=== PATIENT | female | born 2000 | race American Indian/Alaskan Native ===

== ENCOUNTER → 2022-04-25 13:15 | Outpatient (CLI) | payer MEDICAID, SELFPAY ==
[2022-04-25 15:26] LABS: Rubella Antibody IgG 6.5 IU/mL (>15)
[2022-04-27 06:11] LABS: Varicella IgG Antibody 601 index (Immune >165)
[2022-04-27 13:41] LABS: Mumps Virus IgG Antibody <9.0 AU/mL (Immune >10.9)
== END ==
PROVIDERS: Family Provider Physician Assistant; PCP Physician Assistant; Referring Provider Obstetrics & Gynecology; Visit Provider Obstetrics & Gynecology
DX: Z31.89 Encounter for other procreative management (principal)
CPT/HCPCS: 36415; 86735; 86762; 86765; 86787

== ENCOUNTER → 2022-08-22 09:57 | Outpatient (CLI) | payer MEDICAID, SELFPAY ==
--- NOTE | 2022-08-22 09:59 | DI.US.S_ITS ---
PROCEDURE: US PELVIC COMPLETE INDICATIONS: Irregular bleeding TECHNIQUE: Real-time scanning was performed of the pelvic organs, with image documentation. Additional endovaginal scanning was necessary due to incomplete visualization of the adnexal and endometrial structures by transabdominal scanning. COMPARISON: [facility], US, US PELVIC COMPLETE, 10/22/2020, 9:38. FINDINGS: Uterus: Uterus is anteverted and normal in size at 7.0 x 3.2 x 4.6 cm. The myometrium is homogeneous. The endometrium measures 7 mm combined thickness. No focal intrauterine abnormalities. Ovaries: The right ovary measures 2.9 x 2.5 x 2.2 cm, with a calculated ovarian volume of 8.3 cc. The left ovary measures 4.5 x 2.2 x 3.0 cm, with a calculated ovarian volume of 15.7 cc. The ovaries have a normal sonographic appearance. Greater than 12 follicles are identified in each ovary. There is a likely resolving functional cyst in the left ovary measuring 1.3 cm in size. No adnexal masses are seen. Other: No pathologic free abdominal or pelvic fluid. IMPRESSION: 1. Pelvic ultrasound without acute sonographic abnormalities. 2. Greater than 12 follicles identified in each ovary. This is suggestive of possible polycystic ovarian syndrome. However, given presence of presumed resolving left ovarian functional cyst, consider follow-up pelvic ultrasound during patient's next menstrual cycle. We strive to produce accurate, complete, and clear reports of imaging services. To assist us in improving patient care, this report was composed using standard report templates and voice recognition software. Therefore, it may contain abnormal punctuation, insertions and/or omissions. Occasional wrong-word or sound-alike substitutions may occur. Though we review the report and make efforts to correct it, we do recommend that the report be read carefully in proper context to recognize any text inaccuracies. Dictated by: Ramon Ross M.D. on 08/22/2022 at 11:29 Approved by: Ramon Ross M.D. on 08/22/2022 at 11:43
== END ==
PROVIDERS: Family Provider Physician Assistant; PCP Physician Assistant; Referring Provider Obstetrics & Gynecology; Visit Provider Obstetrics & Gynecology
DX: N92.6 Irregular menstruation, unspecified (principal)
CPT/HCPCS: 76830; 76856

== ENCOUNTER → 2022-10-09 11:09 | Outpatient (CLI) | payer MEDICAID, SELFPAY ==
[2022-10-09 12:03] LABS: Add Manual Diff / Slide Review NO; Basophils Absolute Auto 0 /uL (0-100); Basophils Percent Auto 0.4 % (0-2); Eosinophils Absolute Auto 100 /uL (0-450); Eosinophils Percent Auto 1.4 % (2-4); Hematocrit 41.9 % (36-46); Lymphocytes Absolute Auto 2100 /uL (1100-4500); Lymphocytes Percent Auto 32.1 % (25-40); Mean Corpuscular HGB Conc 33.5 % (30-36); Mean Corpuscular Hemoglobin 26.9 PG (26-34); Mean Corpuscular Volume 80.2 fL (80-100); Monocytes Absolute Auto 300 /uL (0-900); Monocytes Percent Auto 4.3 % (3-14); Neutrophils Absolute Auto 4100 /uL (1500-7000); Neutrophils Percent Auto 61.8 % (50-75); Platelet Count 336 X10^3/uL (150-400); Red Blood Cell Count 5.22 X10^6/uL (4.0-5.2); Red Cell Distribution Width 14.8 % (11.6-14.8); White Blood Cell Count 6.6 X10^3/uL (4.5-11.0)
[2022-10-09 12:20] LABS: Hemoglobin A1C% w Est Avg Glu 5.2 % (4.0-6.0)
[2022-10-09 12:32] LABS: Pregnancy Test Serum,Qual Negative (Negative)
[2022-10-09 12:38] LABS: Alanine Aminotransferase 25 IU/L (<35); Albumin 4.6 g/dL (3.5-5.0); Albumin Globulin Ratio 1.4 (1.0-2.8); Alkaline Phosphatase 101 U/L (38-126); Aspartate Aminotransferase 25 IU/L (14-36); BUN Creatinine Ratio 6.3 (6-22); Bilirubin Total 1.2 mg/dL (0.2-1.3); Blood Urea Nitrogen 7 mg/dL (7-17); Calcium 9.2 mg/dL (8.4-10.2); Carbon Dioxide 26 mmol/L (22-32); Chloride 103 mmol/L (98-107); Cholesterol 113 mg/dL (140-199); Estimated Glomerular Filt Rate > 60 mL/min (>60); Globulin 3.2 g/dL (1.7-4.1); Glucose 93 mg/dL (70-100); HDL Cholesterol 55 mg/dL (40-60); HEMOLYSIS < 15 (0-50); LDL Cholesterol Calculated 51 mg/dL (<100); Potassium 4.1 mmol/L (3.4-5.1); Sodium 141 mmol/L (137-145); Total Protein 7.8 g/dL (6.3-8.2); Triglycerides 36 mg/dL (35-150)
[2022-10-09 12:54] LABS: Prolactin 20.4 ng/mL (3.0-18.6)
[2022-10-09 13:10] LABS: Testosterone 37.5 ng/dL (5.71-77.0)
[2022-10-09 19:35] LABS: Follicle Stimulating Hormone 5.41 mIU/mL; Luteinizing Hormone 34.9 mIU/mL
== END ==
PROVIDERS: Family Provider Physician Assistant; PCP Physician Assistant; Referring Provider Obstetrics & Gynecology; Visit Provider Obstetrics & Gynecology
DX: N92.6 Irregular menstruation, unspecified (principal)
CPT/HCPCS: 36415; 80053; 80061; 82627; 83001; 83002; 83036; 84146; 84403; 84443; 84703; 85025

== ENCOUNTER → 2022-10-31 08:03 | Outpatient (CLI) | payer MEDICAID, SELFPAY ==
[2022-10-31 09:27] LABS: Estimated Glomerular Filt Rate > 60 mL/min (>60)
[2022-10-31 09:44] LABS: Prolactin 24.8 ng/mL (3.0-18.6)
== END ==
PROVIDERS: Family Provider Physician Assistant; PCP Physician Assistant; Referring Provider Obstetrics & Gynecology; Visit Provider Obstetrics & Gynecology
DX: R79.89 Other specified abnormal findings of blood chemistry (principal)
CPT/HCPCS: 36415; 82565; 84146

== ENCOUNTER → 2023-01-30 16:46 | Outpatient (CLI) | payer OTHER, MEDICAID, SELFPAY ==
--- NOTE | 2023-01-30 17:31 | DI.US.S_ITS ---
PROCEDURE: US OB <= 14 WEEKS FETUS INDICATIONS: dating and viability OUTSIDE/PRIOR DATING DATA: Last menstrual period (LMP): 10/23/2022 LMP-based estimated date of delivery (ARPAN): 07/30/2023. First dating scan (date and location): 01/30/2023. Estimated date of delivery (ARPAN) from first dating scan: N/A. The calculations are made using the N/A TECHNIQUE: Real-time scanning was performed of the fetus and maternal pelvic organs, with image documentation. Endovaginal scanning was also performed to better visualize the fetus and maternal ovaries. COMPARISON: None. FINDINGS: There is no intrauterine . The endometrium is thickened. There is echogenic material in the cervix. Maternal organs: Ovaries there is an echogenic structure in the left ovary, complex in nature., measuring 2.2 cm in diameter.. IMPRESSION: No intrauterine is noted. There is a complex structure in the left ovary which may potentially represent a ectopic . This is not definite. Comment: Findings were discussed with Dr. Tobias Webb, covering for Dr. Cecille Kaufman on 01/30/2023 at 1839 hours We strive to produce accurate, complete, and clear reports of imaging services. To assist us in improving patient care, this report was composed using standard report templates and voice recognition software. Therefore, it may contain abnormal punctuation, insertions and/or omissions. Occasional wrong-word or sound-alike substitutions may occur. Though we review the report and make efforts to correct it, we do recommend that the report be read carefully in proper context to recognize any text inaccuracies. Dictated by: Eric Montalvo M.D. on 01/30/2023 at 18:47 Approved by: Eric Soni M.D. on 01/30/2023 at 18:51
== END ==
PROVIDERS: Family Provider Physician Assistant; PCP Physician Assistant; Referring Provider Obstetrics & Gynecology; Visit Provider Obstetrics & Gynecology
DX: Z36.87 Encounter for antenatal screening for uncertain dates (principal); O36.80X0 Pregnancy with inconclusive fetal viability, not applicable or unspecified
CPT/HCPCS: 76801; 76830

== ENCOUNTER 2023-01-30 21:03 | Emergency (ER) | payer OTHER, MEDICAID, SELFPAY ==
[2023-01-30 21:08] VITALS: BP 142/85; PULSE 100; RESP 16; TEMP 36.6; O2SAT 99; BMI 28.1
--- NOTE | 2023-01-30 21:33 | ED.FEMALEGU ---
HPI - Female Genitourinary General Chief complaint: Vaginal Bleeding Stated complaint: Reffered by OB, Seen today for ultrasound Time Seen by Provider: 01/30/23 21:07 Source: patient Mode of arrival: Ambulatory History of Present Illness HPI Narrative: 22F at 14 weeks with known kidney disease presents to the emergency department for an abnormal ultrasound. She had some lower abdominal and pelvic cramping in the passage of some clots yesterday and was scheduled for a routine ultrasound today which was performed and noted no intrauterine and a questionable mass in the left ovary raising the suspicion of a possible ectopic . She was sent here for further evaluation. She has some left lower quadrant pain and minimal current an active bleeding Related Data Home Medications Medication Instructions Recorded Confirmed prenat.vits,helen,[id number] 1 tab PO DAILY 01/29/23 01/29/23 Allergies Allergy/AdvReac Type Severity Reaction Status Date / Time No Known Drug Allergies Allergy Unverified 01/29/23 14:32 Review of Systems Review of Systems Narrative: GENERAL: Denies chills, fatigue, malaise, fever, sweats. HEENT: Denies sinus pain, ear pain, sore throat, difficulty swallowing, dizziness. RESPIRATORY: Denies dyspnea, cough, wheezing, hemoptysis, sputum. CARDIOVASCULAR: Denies chest pain, palpitations, orthopnea, edema, GASTROINTESTINAL: Denies nausea, vomiting, abdominal pain, diarrhea, constipation, melena. : See HPI MUSCULOSKELETAL: denies weakness, joint pain, or bony pain SKIN: Denies rash, skin lesions, or other NEUROLOGIC: Denies weakness, headache, numbness, change in speech, confusion, seizures, incoordination. PSYCHIATRIC: No concerning psychosocial issues. 12 point review of systems is negative except for those stated above Patient History Medical History Chlamydia Surgical History [place] teeth extracted Family History Father Hypertension Mother Diabetes mellitus Hypertension Grandfather Diabetes mellitus Hypertension Grandmother Diabetes mellitus Family/Other Diabetes mellitus Stroke Family/Other Diabetes mellitus Hypertension Grandmother Hypothyroidism tobacco type: vaping alcohol intake frequency: holidays/special occasions only Substance Use Type: does not use Exam Narrative Exam Narrative: GENERAL: [22] year old patient appears stated age. Well-developed patient, in mild distress. HEAD: Atraumatic. Normocephalic. EYES: Pupils equal round and reactive. Extraocular motions intact. No scleral icterus. No injection or drainage. ENT: Nose without bleeding, purulent drainage. Throat without erythema, tonsillar hypertrophy or exudate. Airway patent. NECK: Trachea midline. Non tender CARDIOVASCULAR: Regular rate and rhythm without murmurs, gallops, or rubs. RESPIRATORY: Clear to auscultation. Breath sounds equal bilaterally. No wheezes, rales, or rhonchi. GASTROINTESTINAL: Abdomen soft, moderate left lower quadrant tenderness without rebound, nondistended. EXTREMITIES: No edema or joint tenderness. BACK: Nontender without deformity or crepitance. No flank tenderness. NEURO: AOx3. SKIN: No rash or erythema of visible areas Initial Vital Signs Initial Vital Signs: Vital Signs Temperature 97.8 F 01/30/23 21:08 Pulse Rate 100 H 01/30/23 21:08 Respiratory Rate 16 01/30/23 21:08 Blood Pressure 142/85 H 01/30/23 21:08 Pulse Oximetry 99 01/30/23 21:08 Oxygen Delivery Method Room Air 01/30/23 21:08 Course Orders Ordered: ED Orders 01/30/23 21:45 ABO RH Type Stat Complete Blood Count AUTO DIFF Stat Comprehensive Metabolic Panel Stat HCG Quantitative /Beta subunit Stat Consultations Consultation #1: Discussed case at length with OB provider Dr. Webb. Labs have been obtained and H&H is stable, Rh is positive and beta quantitative hCG is only 121. We reviewed the findings on the ultrasound which could represent ectopic, however given this hCG he suggests no intervention such as methotrexate and certainly not surgical intervention is needed at this time and they abnormal finding could represent a corpus luteum cyst. He recommends typical return precautions and instructions for patient to follow-up with his office to obtain a repeat HCG on Thursday Vital Signs Vital signs: Vital Signs - 8 hr 01/30/23 21:08 01/30/23 21:36 01/30/23 21:36 Temperature 97.8 F Pulse Rate 100 H 107 H Respiratory Rate 16 Blood Pressure 142/85 H 138/80 Pulse Oximetry 99 97 Oxygen Delivery Method Room Air 01/30/23 22:00 01/30/23 22:00 01/30/23 22:30 Temperature Pulse Rate 97 H Respiratory Rate Blood Pressure 137/75 126/78 Pulse Oximetry 98 Oxygen Delivery Method 01/30/23 22:30 Temperature Pulse Rate 95 H Respiratory Rate Blood Pressure Pulse Oximetry 99 Oxygen Delivery Method MDM - Female Genitourinary Lab Data 01/30/23 21:45 01/30/23 21:45 Labs: Lab Results 01/30/23 01/30/23 01/30/23 Range/Units 21:45 21:45 21:45 WBC 11.8 H (4.5-11.0) X10^3/uL RBC 5.02 (4.0-5.2) X10^6/uL Hgb 13.1 (12.0-16.0) g/dL Hct 39.4 (36-46) % MCV 78.5 L (80-100) fL MCH 26.2 (26-34) PG MCHC 33.3 (30-36) % RDW 14.1 (11.6-14.8) % Plt Count 331 (150-400) X10^3/uL Neut % (Auto) 82.3 H (50-75) % Lymph % (Auto) 11.4 L (25-40) % [place] % (Auto) 5.6 (3-14) % Eos % (Auto) 0.2 L (2-4) % Baso % (Auto) 0.5 (0-2) % Neut # (Auto) 9700 H (1672-7176) /uL Lymph # (Auto) 1400 (8374-8694) /uL [place] # (Auto) 700 (0-900) /uL Eos # (Auto) 0 (0-450) /uL Baso # (Auto) 100 (0-100) /uL Sodium 137 (137-145) mmol/L Potassium 3.3 L (3.4-5.1) mmol/L Chloride 100 (98-107) mmol/L Carbon Dioxide 26 (22-32) mmol/L BUN 8 (7-17) mg/dL Creatinine 1.09 H (0.52-1.04) mg/dL Estimated GFR > 60 (>60) mL/min BUN/Creatinine Ratio 7.3 (6-22) Glucose 143 H (70-100) mg/dL Calcium 8.9 (8.4-10.2) mg/dL Total Bilirubin 1.4 H (0.2-1.3) mg/dL AST 18 (14-36) IU/L ALT 17 (<35) IU/L Alkaline Phosphatase 94 (38-126) U/L Total Protein 8.1 (6.3-8.2) g/dL Albumin 4.5 (3.5-5.0) g/dL Globulin 3.6 (1.7-4.1) g/dL Albumin/Globulin Ratio 1.3 (1.0-2.8) HCG, Quant 121.8 mIU/mL Blood Type A Positive MDM Narrative Medical decision making narrative: [22] year old patient presents with and left lower quadrant pain with abnormal ultrasound Multiple etiologies for patient's symptoms considered including, but not limited to: [Ectopic versus corpus luteum cyst versus missed versus other] Prior Charts reviewed in our EMR Primary Historian: patient Labs reviewed and interpreted by myself: Slight increase in white blood cells, no significant left shift, H&H stable. Rh positive, beta quantitative HCG 121. Imaging reviewed: Abnormal finding within left ovary Consultations: financial assistance specialist, see details above History, physical, labs and ultrasound are reassuring, per my discussion with Ob there is no clear indication that this is ectopic and given level of hCG and findings on ultrasound he recommends patient go home, follow up with his office and get a repeat HCG on Thursday Findings and discharge diagnosis discussed with patient/family followed by verbalization of understanding Return precautions discussed with patient/family whom verbalize understanding of diagnosis and plan Discharge Plan Departure Patient Disposition: Home Clinical Impression: Acute left lower quadrant pain Instructions: DI for Abdominal Pain-Adult Activity Restrictions/Additional Instructions: *You have been diagnosed with [left lower quadrant pelvic pain. As we discussed your labs today are very reassuring and this is not clearly an ectopic . We will need to have you follow-up with the Gynecology Clinic and get a repeat HCG ( number) which will help clarify how to proceed] *What to do: *Please continue to take your regular medications as directed. [ ] New medication prescriptions sent to your pharmacy: [ ] [ ] New medication written as a paper prescription [ ] No new medications given *Please follow up gallery or museum technician on Thursday. Call their office at the number listed below, let them know you were seen in the emergency department and Dr. Webb wants you to get another HCG *Return to Emergency Department if you should have any new, worsening or concerning symptoms, such as [fever greater than 101 F, shaking chills, worsening pain, persistent vomiting or other bothersome symptoms] Prescriptions: No Action prenat.vits,helen,[id number] Tablet 1 tab PO DAILY Referrals: Tobias Webb MD [Physician] - Zenia Lopez PA-C [Primary Care Provider] - Stand Alone Forms: Patient Portal/API
[2023-01-30 21:36] VITALS: BP 138/80; PULSE 107; O2SAT 97
[2023-01-30 21:56] LABS: Add Manual Diff / Slide Review NO; Basophils Absolute Auto 100 /uL (0-100); Basophils Percent Auto 0.5 % (0-2); Eosinophils Absolute Auto 0 /uL (0-450); Eosinophils Percent Auto 0.2 % (2-4); Hematocrit 39.4 % (36-46); Hemoglobin 13.1 g/dL (12.0-16.0); Lymphocytes Absolute Auto 1400 /uL (1100-4500); Lymphocytes Percent Auto 11.4 % (25-40); Mean Corpuscular HGB Conc 33.3 % (30-36); Mean Corpuscular Hemoglobin 26.2 PG (26-34); Mean Corpuscular Volume 78.5 fL (80-100); Monocytes Absolute Auto 700 /uL (0-900); Monocytes Percent Auto 5.6 % (3-14); Neutrophils Absolute Auto 9700 /uL (1500-7000); Neutrophils Percent Auto 82.3 % (50-75); Platelet Count 331 X10^3/uL (150-400); Red Blood Cell Count 5.02 X10^6/uL (4.0-5.2); Red Cell Distribution Width 14.1 % (11.6-14.8); White Blood Cell Count 11.8 X10^3/uL (4.5-11.0)
[2023-01-30 22:00] VITALS: BP 137/75; PULSE 97; O2SAT 98
[2023-01-30 22:10] LABS: Alanine Aminotransferase 17 IU/L (<35); Albumin 4.5 g/dL (3.5-5.0); Albumin Globulin Ratio 1.3 (1.0-2.8); Alkaline Phosphatase 94 U/L (38-126); Aspartate Aminotransferase 18 IU/L (14-36); BUN Creatinine Ratio 7.3 (6-22); Bilirubin Total 1.4 mg/dL (0.2-1.3); Blood Urea Nitrogen 8 mg/dL (7-17); Calcium 8.9 mg/dL (8.4-10.2); Carbon Dioxide 26 mmol/L (22-32); Chloride 100 mmol/L (98-107); Estimated Glomerular Filt Rate > 60 mL/min (>60); Globulin 3.6 g/dL (1.7-4.1); Glucose 143 mg/dL (70-100); HEMOLYSIS < 15 (0-50); Potassium 3.3 mmol/L (3.4-5.1); Sodium 137 mmol/L (137-145); Total Protein 8.1 g/dL (6.3-8.2)
[2023-01-30 22:28] LABS: HCG Quantitative /Beta subunit 121.8 mIU/mL
[2023-01-30 22:30] VITALS: BP 126/78; PULSE 95; O2SAT 99
== END 2023-01-30 22:47 | disposition home or self-care (01) ==
PROVIDERS: Emergency Provider Emergency Medicine; Family Provider Physician Assistant; PCP Physician Assistant
DX: R10.32 Left lower quadrant pain (principal); Z36.87 Encounter for antenatal screening for uncertain dates; O36.80X0 Pregnancy with inconclusive fetal viability, not applicable or unspecified
CPT/HCPCS: 36415; 76801; 76830; 80053; 84702; 85025; 86900; 86901; 99283

== ENCOUNTER → 2023-02-02 13:00 | Outpatient (CLI) | payer OTHER, MEDICAID, SELFPAY ==
[2023-02-02 14:04] LABS: HCG Quantitative /Beta subunit 41.6 mIU/mL
== END ==
PROVIDERS: Family Provider Physician Assistant; PCP Physician Assistant; Referring Provider Specialist; Visit Provider Specialist
DX: O20.9 Hemorrhage in early pregnancy, unspecified (principal)
CPT/HCPCS: 36415; 84702

== ENCOUNTER → 2023-03-13 08:50 | Outpatient (CLI) | payer OTHER, MEDICAID, SELFPAY ==
[2023-03-13 09:49] LABS: Appearance Urine UA CLEAR; Bilirubin Urine UA NEGATIVE (NEGATIVE); Color Urine UA YELLOW; Glucose Urine UA NEGATIVE (Negative); Ketones Urine UA NEGATIVE (NEGATIVE); Leukocyte Esterase Urine UA NEGATIVE (NEGATIVE); Nitrite Urine UA NEGATIVE (Negative); Occult Blood Urine UA 1+ (Negative); Protein Urine UA NEGATIVE (Negative); Specific Gravity Urine UA 1.015 (1.000-1.035); Urobilinogen Urine UA 0.2 E.U./dL (0.2)
[2023-03-13 09:52] LABS: pH Urine UA 6.5 (4.5-8.0)
[2023-03-13 09:59] LABS: Amorphous Sediment Urine 2+; Bacteria Urine Occasional (0-1); Culture Indicated Urine Specimen Cultured; RBC Urine 0-1/HPF (0-5/HPF); Squamous Epithelial Cell Urine 1-5 /HPF (0-5/HPF); WBC Urine 0-1/HPF (0-5/HPF)
[2023-03-13 10:01] LABS: Alanine Aminotransferase 15 IU/L (<35); Albumin 4.2 g/dL (3.5-5.0); Albumin Globulin Ratio 1.3 (1.0-2.8); Alkaline Phosphatase 103 U/L (38-126); Aspartate Aminotransferase 17 IU/L (14-36); Bilirubin Total 1.1 mg/dL (0.2-1.3); Bilirubin Unconjugated 0.9 mg/dL (0.0-1.1); Globulin 3.2 g/dL (1.7-4.1); HEMOLYSIS < 15 (0-50); Total Protein 7.4 g/dL (6.3-8.2)
[2023-03-13 10:31] LABS: Creatinine Urine Random 80.3 mg/dL; Protein (Total) Urine Random 7 mg/dL (0-12); Protein Creatinine Ratio Urine 0.08 GRAM/24H
[2023-03-14 04:14] LABS: Complement C3 148 mg/dL (82-167)
[2023-03-16 21:19] LABS: ANA Screen, IFA Negative (.)
[2023-03-17 14:19] LABS: Cytoplasmic C-ANCA <1:20 titer (Neg:<1:20); Perinuclear P-ANCA <1:20 titer (Neg:<1:20)
== END ==
PROVIDERS: Family Provider Physician Assistant; PCP Physician Assistant; Referring Provider Student in an Organized Health Care Education/Training Program; Visit Provider Student in an Organized Health Care Education/Training Program
DX: L93.2 Other local lupus erythematosus (principal); M31.30 Wegener's granulomatosis without renal involvement; N00.9 Acute nephritic syndrome with unspecified morphologic changes; D89.89 Other specified disorders involving the immune mechanism, not elsewhere classified; K74.60 Unspecified cirrhosis of liver; K75.9 Inflammatory liver disease, unspecified; R80.9 Proteinuria, unspecified; N30.00 Acute cystitis without hematuria
CPT/HCPCS: 36415; 80076; 81001; 82570; 83516; 84156; 86038; 86160; 86256; 87086

== ENCOUNTER → 2023-03-17 15:15 | Outpatient (CLI) | payer OTHER, MEDICAID, SELFPAY ==
--- NOTE | 2023-03-17 | DI.US.S_ITS ---
PROCEDURE: US RENAL COMPLETE INDICATIONS: CHRONIC KIDNEY DISEASE TECHNIQUE: Real-time scanning was performed of the kidneys and bladder, with image documentation. COMPARISON: [facility], US, US PELVIC COMPLETE, 08/22/2022, 10:11. [facility], US, US PELVIC COMPLETE, 10/22/2020, 9:38. [facility], US, US OB <= 14 WEEKS FETUS, 01/30/2023, 17:42. FINDINGS: Kidneys: Right kidney is enlarged measuring up 18.1 cm, either replaced by multiple cysts or severely hydronephrotic. Left kidney measures 13.8 cm in length. No stones. Renal cortical echotexture is normal. There is mild renal pelviectasis. No suspicious solid mass lesions. Bladder: Pre-void bladder volume is 250 mL. Post-void residual is 28 mL. Pre-void images demonstrate no intraluminal masses or stones. On pre-void images, left ureteral jets are noted with color Doppler interrogation. (Of note, ureteral jets may not be detectable in up to 25% of cases due to insufficient differences in specific gravity between ureteral and bladder urine). Miscellaneous: No free pelvic fluid. There is a 2.7 x 2.2 x 2.4 cm thick-walled cystic structure in the left adnexa with mild peripheral vascularity. IMPRESSION: 1. Severely abnormal right kidney which is enlarged, and replaced multiple cysts or severely hydronephrotic. Question multicystic dysplastic kidney or chronic UPJ obstruction. Recommend correlation with prior ultrasound exam. 2. Normal appearance of left kidney. 3. There is a complex cyst in the area of the left adnexa. Please see separate pelvic ultrasound report. Dictated by: Jovany Cabral M.D. on 03/17/2023 at 17:11 Approved by: Jovany Cabral M.D. on 03/17/2023 at 21:02
== END ==
PROVIDERS: Family Provider Physician Assistant; PCP Physician Assistant; Referring Provider Student in an Organized Health Care Education/Training Program; Visit Provider Student in an Organized Health Care Education/Training Program
DX: N18.2 Chronic kidney disease, stage 2 (mild) (principal); N28.81 Hypertrophy of kidney; N94.89 Other specified conditions associated with female genital organs and menstrual cycle
CPT/HCPCS: 76770

== ENCOUNTER 2023-03-17 16:42 | Emergency (ER) | payer OTHER, MEDICAID, SELFPAY ==
--- NOTE | 2023-03-17 16:50 | DI.US.S_ITS ---
PROCEDURE: US PELVIC COMPLETE INDICATIONS: follow up ectopic preg TECHNIQUE: Real-time scanning was performed of the pelvic organs, with image documentation. Additional endovaginal scanning was necessary due to incomplete visualization of the adnexal and endometrial structures by transabdominal scanning. COMPARISON: [facility], US, US RENAL COMPLETE, 03/17/2023, 15:58. [facility], US, US OB <= 14 WEEKS FETUS, 01/30/2023, 17:42. [facility], US, US PELVIC COMPLETE, 08/22/2022, 10:11. [facility], US, US PELVIC COMPLETE, 10/22/2020, 9:38. FINDINGS: Uterus: Uterus is anteverted and normal in size at 7.3 x 3.7 x 5.1 cm. The myometrium is homogeneous. The endometrium measures 4 mm combined thickness. Previously seen echogenic structure in cervix not appears hypoechoic measuring 1.9 x 0.9 x 1.6 cm, which demonstrate no internal vascularity. Ovaries: The right ovary measures 3.4 x 1.7 x 2.7 cm, with a calculated ovarian volume of 8.1 cc. The left ovary measures 3.9 x 3.0 x 3 point cm, with a calculated ovarian volume of 23.7 cc. There are numerous cysts in the peripheral aspect of right ovary, probably greater than 12. There is a thick-walled cystic structure in the left ovary measuring 3.3 x 2.0 x 2.9 cm. There is a 1.6 x 1.0 x 1.0 cm hypoechoic nodule adjacent to the right ovary. On Doppler ultrasound, there is no increased vascularity. Other: No pathologic free abdominal or pelvic fluid. IMPRESSION: 1. There is a 3.3 x 2.0 x 2.9 cm thick-walled cystic structure in the left ovary, probably a hemorrhagic cyst. The left ovary is enlarged. Recommend a short-term follow-up ultrasound in 6 weeks. 2. A 1.6 x 1.0 x 1.0 cm hypoechoic nodule adjacent to the right ovary. This can be evaluated at same time on follow-up ultrasound. 3. A hypoechoic structure in the area of cervix measuring 1.9 x 0.9 x 1.6 cm. This demonstrates no internal vascularity. It may be a clot. The result was discussed with Dr. Velasco in ER. The patient had a negative test. We strive to produce accurate, complete, and clear reports of imaging services. To assist us in improving patient care, this report was composed using standard report templates and voice recognition software. Therefore, it may contain abnormal punctuation, insertions and/or omissions. Occasional wrong-word or sound-alike substitutions may occur. Though we review the report and make efforts to correct it, we do recommend that the report be read carefully in proper context to recognize any text inaccuracies. Dictated by: Jovany Cabral M.D. on 03/17/2023 at 18:53 Approved by: Jovany Cabral M.D. on 03/17/2023 at 21:11
[2023-03-17 17:32] VITALS: BP 133/89; PULSE 73; RESP 14; TEMP 37.1; O2SAT 99; BMI 28.1
[2023-03-17 18:13] LABS: Add Manual Diff / Slide Review NO; Basophils Absolute Auto 100 /uL (0-100); Basophils Percent Auto 0.6 % (0-2); Eosinophils Absolute Auto 100 /uL (0-450); Eosinophils Percent Auto 0.7 % (2-4); Hemoglobin 13.8 g/dL (12.0-16.0); Lymphocytes Absolute Auto 2400 /uL (1100-4500); Mean Corpuscular HGB Conc 34.6 % (30-36); Mean Corpuscular Hemoglobin 27.3 PG (26-34); Mean Corpuscular Volume 78.9 fL (80-100); Monocytes Absolute Auto 400 /uL (0-900); Monocytes Percent Auto 5.2 % (3-14); Neutrophils Absolute Auto 5600 /uL (1500-7000); Neutrophils Percent Auto 65.5 % (50-75); Platelet Count 333 X10^3/uL (150-400); Red Blood Cell Count 5.07 X10^6/uL (4.0-5.2); Red Cell Distribution Width 15.1 % (11.6-14.8); White Blood Cell Count 8.5 X10^3/uL (4.5-11.0)
[2023-03-17 18:29] LABS: Alanine Aminotransferase 19 IU/L (<35); Albumin 4.5 g/dL (3.5-5.0); Albumin Globulin Ratio 1.3 (1.0-2.8); Alkaline Phosphatase 104 U/L (38-126); Aspartate Aminotransferase 20 IU/L (14-36); BUN Creatinine Ratio 8.9 (6-22); Bilirubin Total 0.7 mg/dL (0.2-1.3); Blood Urea Nitrogen 10 mg/dL (7-17); Carbon Dioxide 26 mmol/L (22-32); Chloride 104 mmol/L (98-107); Estimated Glomerular Filt Rate > 60 mL/min (>60); Globulin 3.5 g/dL (1.7-4.1); Glucose 93 mg/dL (70-100); HEMOLYSIS < 15 (0-50); Sodium 138 mmol/L (137-145)
[2023-03-17 18:44] LABS: HCG Quantitative /Beta subunit < 2.4 mIU/mL
[2023-03-17 18:57] LABS: Potassium 3.9 mmol/L (3.4-5.1)
[2023-03-17 20:29] LABS: Appearance Urine UA CLEAR; Bilirubin Urine UA NEGATIVE (NEGATIVE); Color Urine UA YELLOW; Glucose Urine UA NEGATIVE (Negative); Ketones Urine UA NEGATIVE (NEGATIVE); Leukocyte Esterase Urine UA NEGATIVE (NEGATIVE); Nitrite Urine UA NEGATIVE (Negative); Occult Blood Urine UA TRACE-INTACT (Negative); Protein Urine UA NEGATIVE (Negative); Specific Gravity Urine UA <=1.005 (1.000-1.035); Urobilinogen Urine UA 0.2 E.U./dL (0.2)
[2023-03-17 20:34] VITALS: BP 145/89; PULSE 77; O2SAT 99
[2023-03-17 20:47] LABS: Amorphous Sediment Urine 1+; Bacteria Urine Occasional (0-1); Culture Indicated Urine Cult Not Indicated; RBC Urine None Seen (0-5/HPF); Squamous Epithelial Cell Urine None Seen (0-5/HPF); WBC Urine None Seen (0-5/HPF)
[2023-03-17 21:00] VITALS: PULSE 79; O2SAT 99
--- NOTE | 2023-03-17 21:22 | ED_ITS ---
HPI - Recheck/Abnormal Lab/Rx General Chief Complaint: Recheck/Abnormal Lab/Rx Stated Complaint: sent by radiology, possible ectopic Time Seen by Provider: 03/17/23 18:08 Source: patient Mode of arrival: Ambulatory History of Present Illness HPI narrative: Patient is a 22-year-old female who today had a outpatient renal ultrasound that was ordered by Nephrology. She was sent to nephrology for evaluation of some issues that she was having with and her urine and kidneys. She states that she followed up with Nephrology approximately 1 month ago. Was found out that time that she was . She stated that the patient scheduling coordinator told her that there was not much they can do until after she was but they did recommend a renal ultrasound. It took her approximately 1 month in order to get into get this ultrasound today. She states since that time she did have a miscarriage. She is not having any vaginal bleeding. No abdominal pain. No vomiting. No fevers. No urinary symptoms. She was sent over to the Emergency Department because of abnormal findings on the ultrasound. Related Data Home Medications Medication Instructions Recorded Confirmed prenat.vits,helen,xkl-vrcu-emgjt 1 tab PO DAILY 01/29/23 02/09/23 Previous Rx's Medication Instructions Recorded norethindrone 1 mg-ethinyl 1 tab PO DAILY control #84 02/09/23 estradiol 20 mcg (21)-iron 75 mg tabs (7) tablet Allergies Allergy/AdvReac Type Severity Reaction Status Date / Time No Known Drug Allergies Allergy Verified 03/17/23 17:32 Review of Systems Constitutional Constitutional: Reports system reviewed and no additional complaints, except as documented Respiratory Respiratory: Reports system reviewed and no additional complaints, except as documented Gastrointestinal Gastrointestinal: Reports system reviewed and no additional complaints, except as documented Genitourinary Genitourinary: Reports system reviewed and no additional complaints, except as documented Integumentary/Breasts Skin/Breast: Reports system reviewed and no additional complaints, except as documented Patient History Medical History Chlamydia Surgical History [place] teeth extracted Family History Father Hypertension Mother Diabetes mellitus Hypertension Grandfather Diabetes mellitus Hypertension Grandmother Diabetes mellitus Family/Other Diabetes mellitus Stroke Family/Other Diabetes mellitus Hypertension Grandmother Hypothyroidism Social History marital status: number of children: 0 household members: family lives independently: Yes caregiver/support person: No housing: house pets and animals: Yes (2 dogs & 1 cat; aware of toxo precautions) education level: college (meagan's degree) 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) current occupational exposures/hazards: No special kurtis needs: No travel history: over 6 months ago seatbelt use: always helmet use: No water heater temp set < 120 deg: Yes working smoke detector in home: Yes fire extinguisher in home: Yes carbon monox detector in home: Yes firearms in home: Yes firearms unloaded and locked: Yes do you feel safe at home: Yes Smoking Status: Former smoker second hand exposure: Yes (family members smoke) alcohol intake: former (occasionally when not ) substance use type: marijuana (agrees not to use while /) during the past year weight has: remained stable well-balanced diet: daily or most days daily servings fruits/ve-1 caffeine: Yes (aware of 200mg limit) Type(s) of exercise: walking and weight lifting frequency: 3-4 times per week Smoking Status: Former smoker tobacco type: vaping alcohol intake frequency: holidays/special occasions only Substance Use Type: does not use Exam Initial Vital Signs Initial Vital Signs: Vital Signs Temperature 98.8 F 03/17/23 17:32 Pulse Rate 73 03/17/23 17:32 Respiratory Rate 14 03/17/23 17:32 Blood Pressure 133/89 03/17/23 17:32 Pulse Oximetry 99 03/17/23 17:32 Oxygen Delivery Method Room Air 03/17/23 17:32 HENMT Head: normal to inspection and normocephalic Resp Effort & Inspection: normal respiratory effort Cardio Rate: regular rate GI Inspection: normal to inspection and non-distended Skin General: no rashes or lesions noted Neuro General: patient alert, patient awake and moves all extremities Course Orders Ordered: ED Orders 03/17/23 19:55 Urinalysis and Microscopic Stat Vital Signs Vital signs: Vital Signs - 8 hr 03/17/23 20:34 03/17/23 21:00 03/17/23 21:25 Pulse Rate 77 79 Blood Pressure 145/89 H 136/86 Pulse Oximetry 99 99 Oxygen Delivery Method 03/17/23 21:25 Pulse Rate 79 Blood Pressure Pulse Oximetry 99 Oxygen Delivery Method Room Air MDM - Recheck/Abnormal Lab/Rx Lab Data Attestation: I reviewed the patient's lab results. 03/17/23 17:50 03/17/23 17:50 Labs: Lab Results 03/17/23 03/17/23 03/17/23 Range/Units 17:50 17:50 19:55 WBC 8.5 (4.5-11.0) X10^3/uL RBC 5.07 (4.0-5.2) X10^6/uL Hgb 13.8 (12.0-16.0) g/dL Hct 40.0 (36-46) % MCV 78.9 L (80-100) fL MCH 27.3 (26-34) PG MCHC 34.6 (30-36) % RDW 15.1 H (11.6-14.8) % Plt Count 333 (150-400) X10^3/uL Neut % (Auto) 65.5 (50-75) % Lymph % (Auto) 28.0 (25-40) % [place] % (Auto) 5.2 (3-14) % Eos % (Auto) 0.7 L (2-4) % Baso % (Auto) 0.6 (0-2) % Neut # (Auto) 5600 (2797-4662) /uL Lymph # (Auto) 2400 (5005-3767) /uL [place] # (Auto) 400 (0-900) /uL Eos # (Auto) 100 (0-450) /uL Baso # (Auto) 100 (0-100) /uL Sodium 138 (137-145) mmol/L Potassium 3.9 (3.4-5.1) mmol/L Chloride 104 (98-107) mmol/L Carbon Dioxide 26 (22-32) mmol/L BUN 10 (7-17) mg/dL Creatinine 1.12 H (0.52-1.04) mg/dL Estimated GFR > 60 (>60) mL/min BUN/Creatinine Ratio 8.9 (6-22) Glucose 93 (70-100) mg/dL Calcium 9.0 (8.4-10.2) mg/dL Total Bilirubin 0.7 (0.2-1.3) mg/dL AST 20 (14-36) IU/L ALT 19 (<35) IU/L Alkaline Phosphatase 104 (38-126) U/L Total Protein 8.0 (6.3-8.2) g/dL Albumin 4.5 (3.5-5.0) g/dL Globulin 3.5 (1.7-4.1) g/dL Albumin/Globulin Ratio 1.3 (1.0-2.8) HCG, Quant < 2.4 mIU/mL Urine Color Yellow Urine Appearance Clear Urine pH 6.0 (4.5-8.0) Ur Specific [place] <=1.005 (1.000-1.035) Urine Protein Negative (Negative) Urine Glucose (UA) Negative (Negative) g/dL Urine Ketones Negative (NEGATIVE) Urine Occult Blood Trace-intact (Negative) Urine Nitrate Negative (Negative) Urine Bilirubin Negative (NEGATIVE) Urine Urobilinogen 0.2 (0.2) E.U./dL Ur Leukocyte Esterase Negative (NEGATIVE) Urine RBC None seen (0-5/HPF) Urine WBC None seen (0-5/HPF) Ur Squamous Epith Cells None seen (0-5/HPF) Amorphous Sediment 1+ Urine Bacteria Occasional (0-1) (None) Ur Culture Indicated? 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 US PELVIC COMPLETE ? INDICATIONS:? follow up ectopic preg ? TECHNIQUE:? Real-time scanning was performed of the pelvic organs, with image documentation.? Additional endovaginal scanning was necessary due to incomplete visualization of the adnexal and endometrial structures by transabdominal scanning.? ? COMPARISON:? [facility], US RENAL COMPLETE, 03/17/2023, 15:58.? [facility], US OB <= 14 WEEKS FETUS, 01/30/2023, 17:42.? [facility], PELVIC COMPLETE, 08/22/2022, 10:11.? [facility], PELVIC COMPLETE, 10/22/2020, 9:38. ? FINDINGS:? ?? Uterus:? Uterus is anteverted and normal in size at 7.3 x 3.7 x 5.1 cm. The myometrium is homogeneous. ? The endometrium measures 4 mm combined thickness.? Previously seen echogenic structure in cervix not appears hypoechoic measuring 1.9 x 0.9 x 1.6 cm, which demonstrate no internal vascularity. ? Ovaries:? The right ovary measures 3.4 x 1.7 x 2.7 cm, with a calculated ovarian volume of 8.1 cc. The left ovary measures 3.9 x 3.0 x 3 point cm, with a calculated ovarian volume of 23.7 cc.? There are numerous cysts in the peripheral aspect of right ovary, probably greater than 12.? There is a thick-walled cystic structure in the left ovary measuring 3.3 x 2.0 x 2.9 cm.? There is a 1.6 x 1.0 x 1.0 cm hypoechoic nodule adjacent to the right ovary.? On Doppler ultrasound, there is no increased vascularity.? ? Other:? No pathologic free abdominal or pelvic fluid. ? ? IMPRESSION:? ? 1. There is a 3.3 x 2.0 x 2.9 cm thick-walled cystic structure in the left ovary, probably a hemorrhagic cyst.? The left ovary is enlarged.? Recommend a short- term follow-up ultrasound in 6 weeks. 2. A 1.6 x 1.0 x 1.0 cm hypoechoic nodule adjacent to the right ovary.? This can be evaluated at same time on follow-up ultrasound.? 3. A hypoechoic structure in the area of cervix measuring 1.9 x 0.9 x 1.6 cm.? This demonstrates no internal vascularity.? It may be a clot.? ? The result was discussed with Dr. Velasco in ER.? The patient had a negative test. Renal ultrasound: Radiologist's Impression: PROCEDURE:? US RENAL COMPLETE ? INDICATIONS:? CHRONIC KIDNEY DISEASE ? TECHNIQUE:? Real-time scanning was performed of the kidneys and bladder, with image documentation.? ? COMPARISON:? [facility], , US PELVIC COMPLETE, 08/22/2022, 10:11.? [facility], US PELVIC COMPLETE, 10/22/2020, 9:38.? [facility], US OB <= 14 WEEKS FETUS, 01/30/2023, 17:42. ? FINDINGS:? ? Kidneys:? Right kidney is enlarged measuring up 18.1 cm, either replaced by multiple cysts or severely hydronephrotic. ? Left kidney measures 13.8 cm in length.? No stones.? Renal cortical echotexture is normal.? There is mild renal pelviectasis.? No suspicious solid mass lesions.? ? Bladder:? Pre-void bladder volume is 250 mL.? Post-void residual is 28 mL.? Pre- void images demonstrate no intraluminal masses or stones.? On pre-void images, left ureteral jets are noted with color Doppler interrogation.? (Of note, ureteral jets may not be detectable in up to 25% of cases due to insufficient differences in specific gravity between ureteral and bladder urine).? ? Miscellaneous:? No free pelvic fluid.? There is a 2.7 x 2.2 x 2.4 cm thick- walled cystic structure in the left adnexa with mild peripheral vascularity. ? IMPRESSION:? ? 1. Severely abnormal right kidney which is enlarged, and replaced multiple cysts or severely hydronephrotic.? Question multicystic dysplastic kidney or chronic UPJ obstruction.? Recommend correlation with prior ultrasound exam. 2. Normal appearance of left kidney. 3. There is a complex cyst in the area of the left adnexa.? Please see separate pelvic ultrasound report.? MDM Narrative Medical decision making narrative: The renal ultrasound included in this note is for reference purposes only. It was not ordered by this emergency department. It was performed as an outpatient but it was why she was sent here to the ER. The pelvic ultrasound was ordered during this visit. Patient is hCG quantitative level is negative. There is no signs of any ectopic pregnancies. There is no emergent issue that needs addressed today. She was informed of the findings on the ultrasound and I did recommend that she follow-up with her patient scheduling coordinator and her OB doctor. She expressed understanding and agreement with plan. Discharge Plan Departure Patient Disposition: Home Clinical Impression: Hydronephrosis, right Activity Restrictions/Additional Instructions: I do recommend that you follow-up with your patient scheduling coordinator to discuss the abnormal findings of your right kidney seen on the outpatient ultrasound today. I also recommend you contact your primary doctor for a follow-up. Return to the emergency department for new or worsening symptoms. Prescriptions: No Action norethindrone-e.estradiol-iron 1 mg-20 mcg (21)/75 mg (7) tablet 1 tab PO DAILY Qty: 84 4RF prenat.vits,helen,bia-ghxp-xkwlk Tablet 1 tab PO DAILY Referrals: Zenia Lopez PA-C [Primary Care Provider] - Stand Alone Forms: Patient Portal/API
[2023-03-17 21:25] VITALS: BP 136/86; PULSE 79; O2SAT 99
== END 2023-03-17 21:30 | disposition home or self-care (01) ==
PROVIDERS: Emergency Medicine; Emergency Provider Emergency Medicine; Family Provider Physician Assistant; PCP Physician Assistant
DX: N13.30 Unspecified hydronephrosis (principal); N18.2 Chronic kidney disease, stage 2 (mild); N28.81 Hypertrophy of kidney; N94.89 Other specified conditions associated with female genital organs and menstrual cycle
CPT/HCPCS: 36415; 76770; 76830; 76856; 80053; 81001; 84702; 85025; 99284

== ENCOUNTER → 2023-08-20 16:06 | Outpatient (CLI) | payer OTHER, MEDICAID, SELFPAY ==
[2023-08-20 17:05] LABS: Add Manual Diff / Slide Review NO; Basophils Absolute Auto 0 /uL (0-100); Basophils Percent Auto 0.3 % (0-2); Eosinophils Absolute Auto 0 /uL (0-450); Eosinophils Percent Auto 0.4 % (2-4); Hematocrit 39.9 % (36-46); Hemoglobin 13.8 g/dL (12.0-16.0); Lymphocytes Absolute Auto 2400 /uL (1100-4500); Lymphocytes Percent Auto 23.8 % (25-40); Mean Corpuscular HGB Conc 34.6 % (30-36); Mean Corpuscular Hemoglobin 27.8 PG (26-34); Mean Corpuscular Volume 80.3 fL (80-100); Monocytes Absolute Auto 500 /uL (0-900); Monocytes Percent Auto 4.8 % (3-14); Neutrophils Absolute Auto 7100 /uL (1500-7000); Neutrophils Percent Auto 70.7 % (50-75); Platelet Count 320 X10^3/uL (150-400); Red Blood Cell Count 4.97 X10^6/uL (4.0-5.2); Red Cell Distribution Width 14.2 % (11.6-14.8); White Blood Cell Count 10.1 X10^3/uL (4.5-11.0)
[2023-08-20 17:56] LABS: Albumin 4.1 g/dL (3.5-5.0); BUN Creatinine Ratio 7.3 (6-22); Blood Urea Nitrogen 8 mg/dL (7-17); Carbon Dioxide 20 mmol/L (22-32); Chloride 104 mmol/L (98-107); Estimated Glomerular Filt Rate > 60 mL/min (>60); Glucose 88 mg/dL (70-100); HEMOLYSIS < 15 (0-50); Phosphorous 3.8 mg/dL (2.5-4.5); Potassium 3.8 mmol/L (3.4-5.1); Sodium 136 mmol/L (137-145)
[2023-08-20 18:54] LABS: Hepatitis B Surface Antigen NEGATIVE s/c (NEGATIVE); Rubella Antibody IgG 8.9 IU/mL (>15)
[2023-08-20 19:12] LABS: Hep C Virus Ab w/Reflex Quant NEGATIVE s/c (NEGATIVE)
[2023-08-20 19:13] LABS: HIV 1 & 2 Ab/Ag 4th Gen Combo NEGATIVE (NEGATIVE)
[2023-08-21 07:12] LABS: RPR Screen Non Reactive (Non Reactive)
[2023-08-21 09:42] LABS: Varicella IgG Antibody 652 index (Immune >165)
== END ==
PROVIDERS: Family Provider Physician Assistant; PCP Physician Assistant; Referring Provider Obstetrics & Gynecology; Visit Provider Obstetrics & Gynecology
DX: Z34.81 Encounter for supervision of other normal pregnancy, first trimester (principal); N28.9 Disorder of kidney and ureter, unspecified
CPT/HCPCS: 36415; 80055; 80069; 86787; 86803; 86850; 86900; 86901; 87389

== ENCOUNTER → 2023-09-15 14:47 | Outpatient (CLI) | payer OTHER, MEDICAID, SELFPAY ==
[2023-09-15 15:20] LABS: Specimen Label NATARA
== END ==
PROVIDERS: Family Provider Physician Assistant; PCP Physician Assistant; Referring Provider Student in an Organized Health Care Education/Training Program; Visit Provider Student in an Organized Health Care Education/Training Program
DX: Z34.81 Encounter for supervision of other normal pregnancy, first trimester (principal)
CPT/HCPCS: 87086

== ENCOUNTER → 2023-10-12 14:19 | Outpatient (CLI) | payer OTHER, MEDICAID, SELFPAY ==
[2023-10-14 22:22] LABS: AFP Value 39.1 ng/mL (.); Gest Age on Col Date 19.9 weeks (.); Insulin Dep Diabetes No (.); OSBR Risk 1IN 10000 (.); Results Report (.); Test Results *Screen Negative* (.)
[2023-10-16 08:02] LABS: PDF SCANNED
== END ==
PROVIDERS: Family Provider Physician Assistant; PCP Physician Assistant; Referring Provider Physician Assistant Medical; Visit Provider Physician Assistant Medical
DX: Z34.02 Encounter for supervision of normal first pregnancy, second trimester (principal); Z3A.17 17 weeks gestation of pregnancy
CPT/HCPCS: 36415; 82105

== ENCOUNTER → 2023-11-03 12:12 | Outpatient (CLI) | payer OTHER, MEDICAID, SELFPAY ==
--- NOTE | 2023-11-03 | DI.US.S_ITS ---
PROCEDURE: US OB >= 14 WEEKS FETUS INDICATIONS: ANATOMY OUTSIDE/PRIOR DATING DATA: Last menstrual period (LMP): 06/15/2023. LMP-based estimated date of delivery (ARPAN): 03/01/2024. First dating scan (date and location): 08/20/2023. Estimated date of delivery (ARPAN) from first dating scan: 03/21/2024. The calculations are made using the ultrasound ARPAN of 03/21/2024. TECHNIQUE: Real-time scanning was performed of the fetus, with image documentation and biometric measurements. Endovaginal scanning: Not performed COMPARISON: None. FINDINGS: General: A single living intrauterine gestation is present. Presentation: Transverse. Placenta: Placental position is anterior , without previa. Amniotic fluid index: 13.9 cm, normal range is 5-24 cm. Single deepest vertical pocket is 3.8 cm. heart rate: 137 beats per minute. Maternal cervical canal: 5.2 cm long. Normal lower limit is 2.5 cm. biometrics: Biparietal diameter: 4.7 cm, 20 weeks 1 day Head circumference: 17.6 cm, 20 weeks 0 days Abdominal circumference: 15.0 cm, 20 weeks 2 days Femur length: 3.2 cm, 20 weeks 1 day Clinically estimated gestational age: 20 weeks 1 day Composite gestational age from present scan: 20 weeks 1 day Estimated weight and percentile: 337 g, 47th percentile Anatomic survey: Neuro: Ventricles are non-dilated at less than 10 mm. Cisterna magna is normal at 3-11 mm. Cerebellum is normal in size and morphology. Nuchal skin fold: Normal at less than 6 mm between 14-21 weeks gestational age. Face: Nose and lips within normal limits. Facial profile not well seen. Spine: No evidence for spina bifida. Heart: 4-chambered heart is present, with normal LVOT period RVOT not well seen. Diaphragm: Diaphragm is intact. Stomach: Left-sided stomach is present. Kidneys: No hydronephrosis. Normal is less than 5 mm in 2nd trimester, less than 7 mm in 3rd trimester. Cord: 3-vessel cord has orthotopic insertion. Bladder: Normal in size. Extremities: All 4 extremities identified. IMPRESSION: 1. Living 2nd trimester intrauterine with no sonographic evidence of complications. Current ultrasound age is the same is clinical age based on initial 1st trimester ultrasound. 2. Suboptimal visualization of facial profile as well as RVOT. Recommend return for limited follow-up imaging to adequately evaluate these remaining structures. 2nd trimester anatomy study otherwise unremarkable. We strive to produce accurate, complete, and clear reports of imaging services. To assist us in improving patient care, this report was composed using standard report templates and voice recognition software. Therefore, it may contain abnormal punctuation, insertions and/or omissions. Occasional wrong-word or sound-alike substitutions may occur. Though we review the report and make efforts to correct it, we do recommend that the report be read carefully in proper context to recognize any text inaccuracies. Dictated by: Eric Soni M.D. on 11/03/2023 at 18:20 Approved by: Eric Soni M.D. on 11/03/2023 at 18:24
== END ==
PROVIDERS: Family Provider Physician Assistant; PCP Physician Assistant; Referring Provider Physician Assistant Medical; Visit Provider Physician Assistant Medical
DX: Z34.82 Encounter for supervision of other normal pregnancy, second trimester (principal); Z3A.20 20 weeks gestation of pregnancy
CPT/HCPCS: 76811

== ENCOUNTER → 2023-11-12 15:23 | Outpatient (CLI) | payer OTHER, MEDICAID, SELFPAY ==
--- NOTE | 2023-11-12 15:24 | DI.US.S_ITS ---
PROCEDURE: US OB LIMITED INDICATIONS: F/u facial profile and RVOT views OUTSIDE/PRIOR DATING DATA: Last menstrual period (LMP): 06/15/2023. LMP-based estimated date of delivery (ARPAN): 03/01/2024. First dating scan (date and location): 08/20/2023. Estimated date of delivery (ARPAN) from first dating scan: 03/21/2024. The calculations are made using the ultrasound ARPAN of 03/21/2024. TECHNIQUE: Real-time scanning was performed of the fetus, with image documentation. COMPARISON: [facility], , US OB >= 14 WEEKS FETUS, 11/03/2023, 12:24. FINDINGS: A single living intrauterine gestation is present. Presentation: Transverse. Placenta: Placental position is anterior, without previa. Amniotic fluid index: 11.3 cm, normal range is 5-24 cm. Single deepest vertical pocket is 4.2 cm. heart rate: 136 beats per minute. Maternal cervical canal: 3.7 cm long. Normal lower limit is 2.5 cm. Clinically estimated gestational age: 21 weeks 3 days Facial profile and RVOT are within normal limits. IMPRESSION: 1. Simmons living intrauterine at 21 weeks 3 days based on prior dating. 2. Normal placenta and amniotic fluid. 3. Facial profile and RVOT have a normal appearance. Dictated by: Antelmo Ji M.D. on 11/12/2023 at 19:50 Approved by: Antelmo Ji M.D. on 11/12/2023 at 19:55
== END ==
PROVIDERS: Family Provider Physician Assistant; PCP Physician Assistant; Referring Provider Physician Assistant Medical; Visit Provider Physician Assistant Medical
DX: Z34.92 Encounter for supervision of normal pregnancy, unspecified, second trimester (principal); Z3A.21 21 weeks gestation of pregnancy
CPT/HCPCS: 76815

== ENCOUNTER → 2023-11-24 14:59 | Outpatient (CLI) | payer OTHER, MEDICAID, SELFPAY ==
[2023-11-24 15:41] LABS: Appearance Urine UA TURBID; Bilirubin Urine UA NEGATIVE (NEGATIVE); Color Urine UA YELLOW; Glucose Urine UA NEGATIVE (Negative); Ketones Urine UA 3+ (NEGATIVE); Leukocyte Esterase Urine UA 3+ (NEGATIVE); Nitrite Urine UA POSITIVE (Negative); Occult Blood Urine UA 3+ (Negative); Protein Urine UA 3+ (Negative); Specific Gravity Urine UA 1.025 (1.000-1.035)
[2023-11-24 15:56] LABS: Bacteria Urine Many (>30); Culture Indicated Urine Specimen Cultured; RBC Urine >100/HPF (0-5/HPF); Squamous Epithelial Cell Urine 1-5 /HPF (0-5/HPF); WBC Urine >100/HPF (0-5/HPF)
== END ==
PROVIDERS: Family Provider Physician Assistant; PCP Physician Assistant; Referring Provider Obstetrics & Gynecology; Visit Provider Obstetrics & Gynecology
DX: O26.832 Pregnancy related renal disease, second trimester (principal); M54.50 Low back pain, unspecified
CPT/HCPCS: 81001; 87086

== ENCOUNTER → 2023-12-10 11:10 | Outpatient (CLI) | payer OTHER, MEDICAID, SELFPAY | PROVIDERS: Family Provider Physician Assistant; PCP Physician Assistant; Visit Provider Specialist | DX: R82.998 Other abnormal findings in urine (principal) | CPT/HCPCS: 87086 ==

== ENCOUNTER → 2023-12-24 07:01 | Outpatient (CLI) | payer OTHER, MEDICAID, SELFPAY ==
[2023-12-24 08:57] LABS: Add Manual Diff / Slide Review NO; Basophils Absolute Auto 0 /uL (0-100); Basophils Percent Auto 0.3 % (0-2); Eosinophils Absolute Auto 100 /uL (0-450); Hematocrit 35.8 % (36-46); Hemoglobin 12.6 g/dL (12.0-16.0); Lymphocytes Absolute Auto 2200 /uL (1100-4500); Lymphocytes Percent Auto 22.6 % (25-40); Mean Corpuscular HGB Conc 35.2 % (30-36); Mean Corpuscular Hemoglobin 29.9 PG (26-34); Mean Corpuscular Volume 84.9 fL (80-100); Monocytes Absolute Auto 400 /uL (0-900); Monocytes Percent Auto 4.2 % (3-14); Neutrophils Absolute Auto 6900 /uL (1500-7000); Neutrophils Percent Auto 71.9 % (50-75); Platelet Count 288 X10^3/uL (150-400); Red Blood Cell Count 4.21 X10^6/uL (4.0-5.2); Red Cell Distribution Width 14.1 % (11.6-14.8); White Blood Cell Count 9.5 X10^3/uL (4.5-11.0)
[2023-12-24 09:14] LABS: Aspartate Aminotransferase 14 IU/L (14-36); Blood Urea Nitrogen 7 mg/dL (7-17); Estimated Glomerular Filt Rate > 60 mL/min (>60); GTT (PREG) 1 Hour PP 50gm Dose 113 mg/dL (76-139); Total Protein 6.5 g/dL (6.3-8.2); Uric Acid 3.6 mg/dL (2.5-6.2)
== END ==
PROVIDERS: Family Provider Physician Assistant; PCP Physician Assistant; Referring Provider Obstetrics & Gynecology; Visit Provider Obstetrics & Gynecology
DX: Z34.82 Encounter for supervision of other normal pregnancy, second trimester (principal); Z3A.26 26 weeks gestation of pregnancy
CPT/HCPCS: 82950; 84155; 84450; 84550; 85025

== ENCOUNTER → 2024-01-07 12:15 | Outpatient (CLI) | payer OTHER, MEDICAID, SELFPAY | PROVIDERS: Family Provider Physician Assistant; PCP Physician Assistant; Visit Provider Obstetrics & Gynecology | DX: Z34.90 Encounter for supervision of normal pregnancy, unspecified, unspecified trimester (principal); R31.9 Hematuria, unspecified | CPT/HCPCS: 87086 ==

== ENCOUNTER 2024-02-04 11:52 | Outpatient (CLI) | payer OTHER, MEDICAID, SELFPAY | END 2024-02-04 12:57 | disposition home or self-care (01) | LOC: LABOR 12:20 → OB 02-09 09:46 | PROVIDERS: Family Provider Physician Assistant; PCP Physician Assistant; Referring Provider Obstetrics & Gynecology; Visit Provider Obstetrics & Gynecology | DX: O26.853 Spotting complicating pregnancy, third trimester (principal); Z3A.33 33 weeks gestation of pregnancy | CPT/HCPCS: 59025; G0378; G0379 ==

== ENCOUNTER 2024-02-17 12:35 | Outpatient (CLI) | payer OTHER, MEDICAID, SELFPAY ==
[2024-02-17 13:28] LABS: Appearance Urine UA CLEAR; Bilirubin Urine UA NEGATIVE (NEGATIVE); Color Urine UA YELLOW; Glucose Urine UA NEGATIVE (Negative); Ketones Urine UA NEGATIVE (NEGATIVE); Leukocyte Esterase Urine UA NEGATIVE (NEGATIVE); Nitrite Urine UA NEGATIVE (Negative); Occult Blood Urine UA NEGATIVE (Negative); Protein Urine UA TRACE (Negative); Urobilinogen Urine UA 0.2 E.U./dL (0.2)
[2024-02-17 13:32] LABS: pH Urine UA 7.5 (4.5-8.0)
[2024-02-17 13:34] LABS: Bacteria Urine Occasional (0-1); Culture Indicated Urine Cult Not Indicated; RBC Urine 0-1/HPF (0-5/HPF); Squamous Epithelial Cell Urine 10-30 /HPF (0-5/HPF); Urine Volume 10mL (spun); WBC Urine 0-1/HPF (0-5/HPF)
[2024-02-17 15:56] LABS: Strep Grp B PCR NEG for Grp B Strep
== END 2024-02-17 13:55 | disposition home or self-care (01) ==
LOC: LABOR 13:49 → OB 02-26 14:34
PROVIDERS: Obstetrics & Gynecology; Family Provider Physician Assistant; PCP Physician Assistant; Referring Provider Student in an Organized Health Care Education/Training Program; Visit Provider Student in an Organized Health Care Education/Training Program
DX: O60.03 Preterm labor without delivery, third trimester (principal); O46.93 Antepartum hemorrhage, unspecified, third trimester; Z3A.35 35 weeks gestation of pregnancy
CPT/HCPCS: 59025; 81001; 87081; 87653; G0378; G0379

== ENCOUNTER 2024-03-15 11:52 | Inpatient (IN) | payer OTHER, MEDICAID, SELFPAY ==
[2024-03-15 12:39] LABS: Add Manual Diff / Slide Review NO; Basophils Absolute Auto 100 /uL (0-100); Basophils Percent Auto 0.7 % (0-2); Eosinophils Absolute Auto 100 /uL (0-450); Eosinophils Percent Auto 0.6 % (2-4); Hematocrit 36.5 % (36-46); Hemoglobin 12.4 g/dL (12.0-16.0); Lymphocytes Absolute Auto 1800 /uL (1100-4500); Lymphocytes Percent Auto 18.8 % (25-40); Mean Corpuscular HGB Conc 33.9 % (30-36); Mean Corpuscular Hemoglobin 28.4 PG (26-34); Mean Corpuscular Volume 83.7 fL (80-100); Monocytes Absolute Auto 500 /uL (0-900); Monocytes Percent Auto 4.6 % (3-14); Neutrophils Absolute Auto 7300 /uL (1500-7000); Neutrophils Percent Auto 75.3 % (50-75); Platelet Count 279 X10^3/uL (150-400); Red Blood Cell Count 4.36 X10^6/uL (4.0-5.2); Red Cell Distribution Width 14.3 % (11.6-14.8); White Blood Cell Count 9.7 X10^3/uL (4.5-11.0)
[2024-03-15 12:56] LABS: Alanine Aminotransferase 8 IU/L (<35); Aspartate Aminotransferase 15 IU/L (14-36)
[2024-03-15 13:10] LABS: Aspartate Aminotransferase 20 IU/L (14-36); BUN Creatinine Ratio 8.1 (6-22); Blood Urea Nitrogen 7 mg/dL (7-17); Estimated Glomerular Filt Rate > 60 mL/min (>60); Uric Acid 5.3 mg/dL (2.5-6.2)
[2024-03-15 13:17] LABS: Creatinine Urine Random 39.7 mg/dL; Protein (Total) Urine Random 23 mg/dL (0-12); Protein Creatinine Ratio Urine 0.57 GRAM/24H
[2024-03-15 15:10] VITALS: BP 154/95
--- NOTE | 2024-03-15 15:25 | PM.OBHP.1 ---
OB HPI Date/Time Date of admission: 03/15/24 Date Patient Seen: 03/15/24 Time Patient Seen: 15:25 History of Present Condition Chief complaint: pre-eclampsia : 2 Para: 0 Estimated Date of Delivery: 03/21/24 Estimated Gestational Age (weeks): 39+1 Narrative: Nanci Núñez is a 23 year old female Comments: Presented for regular contractions today, denied leaking fluid or vaginal bleeding. She also denied any headaches, vision changes, right upper quadrant pain, chest pain or shortness of breath. Indications Indication for induction OB: gestational HTN/pre-eclampsia History of Present care: good care Dating criteria: LMP confirmed by 1st trimester US Ultrasounds: normal mid trimester US Obstetrical complications: preeclampsia (On admission) Medical complications: genitourinary (Chronic kidney disease) Narrative: (SAB 01/2023) Spotting at 33 weeks Ovarian cyst (), surgery cancelled when pt became Chronic kidney disease (right kidney multicystic on imaging, left kidney normal)--> creatinine 1.1, other baseline pre-e labs normal; [x] ASA for pre-e prevention, 12/24/23 Cr 0.87 cfDNA, normal male, AFP negative Juan Preadmission Labs Blood type: A (+) positive -: Antibody screen: negative, Cystic fibrosis screen: unknown, GBS status: negative, HBsAG: negative, HIV: negative, HSV 1: positive, HSV 2: positive and RPR/VDLR: negative -: Chlamydia screen: not detected and Gonorrhea screen: not detected -: Rubella: not immune and Varicella: immune HCT: 36.5 HCAB: negative PAP: Normal Cell-free DNA: Low risk XY 1 hr GTT: 113 Evaluation Evaluation Baseline heart rate: 150 Variability: Moderate (11-25) monitor accelerations: Present Monitor Decelerations: Absent Status: Category l Dilation (cm): 1 Effacement (%): 70 station: -2 [facility] Medical History (Updated 03/11/24 @ 10:05 by Carmencita Puente MD) in first trimester Chlamydia Surgical History (Updated 08/13/23 @ 15:40 by Pamela Hernandez RN) History of dental surgery (~2004) [place] teeth extracted (~2015) Family History (Updated 08/13/23 @ 15:43 by Pamela Hernandez RN) Father Hypertension Mother Diabetes mellitus Hypertension Grandfather Diabetes mellitus Hypertension Grandmother Diabetes mellitus Hypertension Family/Other Diabetes mellitus Stroke Family/Other Diabetes mellitus Hypertension Grandmother Hypothyroidism Social History marital status: number of children: 0 household members: spouse and family lives independently: Yes caregiver/support person: No housing: house pets and animals: Yes (2 dogs & 1 cat; aware of toxo precautions) education level: college occupational status: employed current occupational exposures/hazards: No special kurtis needs: No travel history: recent seatbelt use: always helmet use: No water heater temp set < 120 deg: Yes working smoke detector in home: Yes fire extinguisher in home: Yes carbon monox detector in home: Yes firearms in home: Yes firearms unloaded and locked: Yes do you feel safe at home: Yes Smoking Status: Former smoker Tobacco: How many years used: 4 second hand exposure: Yes (family members vape) alcohol intake: former substance use type: marijuana during the past year weight has: remained stable well-balanced diet: daily or most days daily servings fruits/ve-4 caffeine: Yes (aware of 200mg limit) Type(s) of exercise: walking and weight lifting frequency: daily Meds Home Medications and Allergies Home Medications Medication Instructions Recorded Confirmed Type Lactobacillus acidophilus 10 10,000 mmu cells PO DAILY 07/28/23 03/11/24 History billion cell capsule (Probiotic) cetirizine 10 mg capsule 10 mg PO DAILY 07/28/23 03/11/24 History multivitamin 1 tab PO DAILY 07/28/23 03/11/24 History aspirin 81 mg chewable tablet 81 mg PO DAILY 10/12/23 03/11/24 History Allergies Allergy/AdvReac Type Severity Reaction Status Date / Time No Known Drug Allergies Allergy Verified 03/11/24 09:41 Review of Systems Review of Systems ROS: Yes All systems reviewed with the patient and are negative except as otherwise documented OB Exam Vital signs Blood Pressure: 167/101 (repeat 154/95) Pulse Rate: 75 Temperature: 96.6 F HENMT Head: normal to inspection Resp Effort & Inspection: normal respiratory effort and able to speak in complete sentences Cardio Rate: regular rate Rhythm: regular rhythm Extremities Lower extremity: Yes normal to inspection GI Other: gravid, nontender, nondistended Presentation: vertex (per exam) Objective Labs 03/15/24 12:31 03/15/24 12:31 Labs: Laboratory Results - last 24 hr 03/15/24 03/15/24 03/15/24 12:20 12:31 12:31 WBC 9.7 RBC 4.36 Hgb 12.4 Hct 36.5 MCV 83.7 MCH 28.4 MCHC 33.9 RDW 14.3 Plt Count 279 Neut % (Auto) 75.3 H Lymph % (Auto) 18.8 L [place] % (Auto) 4.6 Eos % (Auto) 0.6 L Baso % (Auto) 0.7 Neut # (Auto) 7300 H Lymph # (Auto) 1800 [place] # (Auto) 500 Eos # (Auto) 100 Baso # (Auto) 100 BUN 7 Creatinine 0.86 Estimated GFR > 60 BUN/Creatinine Ratio 8.1 Uric Acid 5.3 AST 15 20 ALT 8 U Random Total Protein 23 H Urine Creatinine 39.7 Protein/Creatinin Ratio 0.57 Assessment and Plan Assessment and Plan Assessment and Plan narrative: 23yo at 39+1wks admitted for induction of labor due to newly diagnosed pre-eclampsia without severe features upon presentation today. Her blood pressures have been primarily mild range, with no sustained severe range blood pressures at this time. -PIH labs, T&S on admission -continuous EFM -epidural PRN -GBS neg, ppx not indicated -PPH risk low -VTE risk low, SCDs with epidural -alvarenga bulb placed for induction of labor -anticipate L&D Counseling: Common procedures and interventions related to the management of were explained to the patient, including assistance at vaginal delivery with episiotomy, vacuum, or forceps, use of medications to stop premature labor or induce labor, and assessment including auscultation (listening to the heart), use of electronic monitoring (external and / or internal), and use of scalp electrode and/or intrauterine pressure catheter.? It was also explained that approximately 20-30% of mothers have a need for delivery during their labor course. It was explained to the patient that , labor and delivery are ordinarily normal physiological events and can be expected to provide a healthy outcome for mother and baby in the majority of cases. However, there are complications that may arise during , labor, and delivery, such as: hemorrhage requiring administration of blood and/or blood products, surgical intervention, possibly even hysterectomy for life-saving purposes; possibility of infection requiring antibiotics, prolonged hospital stay, and rarely surgical intervention; possibility of blood clots;? possibility of retained products of conception requiring surgical intervention;? possibility of serious tears or injury to the vagina, cervix, perineum, or rectum;? possibility of injury to abdominal structures if delivery is required;? and rarely maternal or may occur. Time Spent with Patient Total time spent with greater than 50% in coordination of care (as documented) at patient's floor/unit and/or counseling patient:: 15-24 minutes
[2024-03-15 15:41] VITALS: BP 167/101; PULSE 75; TEMP 35.9
[2024-03-15 16:02] LABS: Add Manual Diff / Slide Review NO; Basophils Absolute Auto 0 /uL (0-100); Basophils Percent Auto 0.3 % (0-2); Eosinophils Absolute Auto 0 /uL (0-450); Eosinophils Percent Auto 0.4 % (2-4); Hematocrit 37.8 % (36-46); Hemoglobin 12.8 g/dL (12.0-16.0); Lymphocytes Absolute Auto 2000 /uL (1100-4500); Lymphocytes Percent Auto 19.1 % (25-40); Mean Corpuscular HGB Conc 33.9 % (30-36); Mean Corpuscular Hemoglobin 28.5 PG (26-34); Mean Corpuscular Volume 83.9 fL (80-100); Monocytes Absolute Auto 400 /uL (0-900); Monocytes Percent Auto 4.1 % (3-14); Neutrophils Absolute Auto 7900 /uL (1500-7000); Neutrophils Percent Auto 76.1 % (50-75); Platelet Count 276 X10^3/uL (150-400); Red Blood Cell Count 4.51 X10^6/uL (4.0-5.2); Red Cell Distribution Width 14.2 % (11.6-14.8); White Blood Cell Count 10.4 X10^3/uL (4.5-11.0)
--- NOTE | 2024-03-15 21:30 | P.PNOB_ITS ---
Pelvic Exam Dilation (cm): 4 Effacement (%): 70 station: -2 Amniotic membrane status: Intact Contractions Contraction frequency (min): 3 Contraction pattern: Irregular Contraction intensity: Moderate Status status: Category l Heart Rate Baseline: 140 Monitor Accelerations: Present Monitor Decelerations: Absent Monitor Variability: Moderate Assessment and Plan Comments: 23yo at 39+1wks undergoing induction of labor for pre-e w/o SF. Her blood pressures remain labile, fluctuating between normal and high mild range with a few non-sustained severe range pressures. She has not required anti- hypertensive treatment as of yet, and remains asymptomatic. Her last SVE was 4/70/-2 at 1840. Per RN report, pt is painfully valeri regularly without pitocin at this time. -advised repeat SVE in the next 1-2hrs, and if minimal cervical change, start pitocin for augmentation -epidural PRN -continue close monitoring of BP's and treat as indicated
[2024-03-15] MEDS: LABETALOL 20 MG/4 ML SYRINGE IV (23:28)
[2024-03-16] MEDS: LACTATED RINGERS 1,000 ML 100 ML IV (04:33)
[2024-03-16] MEDS: OXYTOCIN PREMIX 30 UNIT/500 ML PLAST..BAG IV (04:34)
[2024-03-16] MEDS: ACETAMINOPHEN 325 MG TABLET 650 MG PO ×3 (05:35→23:01)
--- NOTE | 2024-03-16 07:16 | PM.OBPNLAB ---
Pain Control Pain control: tolerating well (per overnight RN) Pelvic Exam Dilation (cm): 7 (per RN exam) Effacement (%): 90 station: -2 Amniotic membrane status: Ruptured (SROM clear at 0430) Contractions Pitocin rate (mU/min): 6 (started at 0430) Contraction frequency (min): 3 Contraction pattern: Irregular Contraction intensity: Moderate Status status: Category l Heart Rate Baseline: 145 Monitor Accelerations: Present Monitor Decelerations: Absent Monitor Variability: Moderate Assessment and Plan Assessment: active labor Plan: continuous present management Comments: 23yo at 39+2wks undergoing induction of labor for pre-e w/o SF. Blood pressures continue to be labile, varying between normal, mild, non-sustained severe range. Did receive one dose of labetalol overnight due to persistent severe range, however while the medication was being pushed, the blood pressure had already recovered to normal again. Held off on starting IV magnesium at this time. -continue to closely monitor blood pressures and start magnesium if severe range blood pressures persist -continue to titrate pitocin for effect -pt desires to labor without epidural as of now per RN -will sign this patient out to my colleague Dr. Puente
--- NOTE | 2024-03-16 09:08 | PM.OBPNLAB ---
Date/Time Date Patient Seen: 03/16/24 Time Patient Seen: 09:09 Pain Control Pain control: tolerating well Pelvic Exam Dilation (cm): 5 Effacement (%): 90 station: -1 Amniotic membrane status: Ruptured (SROM clear at 0430 clear) Contractions Contraction frequency (min): 3 Contraction pattern: Irregular Contraction intensity: Moderate Status status: Category l Heart Rate Baseline: 140 Monitor Accelerations: Present Monitor Decelerations: Absent Monitor Variability: Moderate Assessment and Plan Assessment: active labor (Slow progress) Plan: continuous present management Comments: Patient states she had a headache at 5:00 a.m. that resolved with Tylenol. No scotomata or epigastric pain. Blood pressure stable.
[2024-03-16 10:52] VITALS: BP 179/107; PULSE 105
[2024-03-16] MEDS: LABETALOL 20 MG/4 ML SYRINGE IV (10:52)
--- NOTE | 2024-03-16 12:15 | PM.OBPNLAB ---
Date/Time Date Patient Seen: 03/16/24 Time Patient Seen: 12:15 Pain Control Comments: Patient did not want an epidural. She is not having good pain relief with nitrous oxide. She is requesting IV narcotic analgesia Pelvic Exam Dilation (cm): 7 Effacement (%): 90 station: 0 Amniotic membrane status: Ruptured (SROM clear at 0430 clear) Contractions Contractions on admission: regular Monitor mode: External Contraction frequency (min): 3 Contraction pattern: Regular Contraction intensity: Strong/Firm Status status: Category l Heart Rate Baseline: 130 Monitor Accelerations: Present Monitor Decelerations: Episodic Monitor Variability: Moderate Assessment and Plan Assessment: active labor Plan: continuous present management Comments: Patient at 10:44 a.m. had a blood pressure 179/107. Her blood pressure responded to IV labetalol and is now 142/84
[2024-03-16] MEDS: fentaNYL 100 MCG/2 ML INJ IV (12:20)
[2024-03-16] MEDS: TRANEXAMIC ACID 1,000 MG in SODIUM CHLORIDE 0.9% 100 ML 200 MG IV (13:11)
[2024-03-16] MEDS: miSOPROStoL 200 MCG TABLET 800 MCG PR (13:12)
--- NOTE | 2024-03-16 13:17 | PM.OBPRVD ---
Events: Pre-Eclampsia (Admitted for induction no magnesium, IV labetalol) Labor & Delivery Delivery date: 03/16/24 Intrapartal Events: Mild Preeclampsia Cervical ripening method: per Matos bulb protocol Delivery augmentation: pitocin Delivery monitor: external FHT and external uterine Route of delivery: L&D Laceration Description: None Estimated blood loss (mL): 900 Anesthesia Type: Other (Nitrous oxide and IV fentanyl) Narrative: Patient was admitted to Labor and delivery for probable mild preeclampsia at 39 and half weeks. She had increased blood pressures. Normal PIH labs except for increased protein to creatinine ratio of 0.5. The patient required 2 doses of IV labetalol throughout labor to lower her blood pressure. She had a headache that responded to Tylenol but no scotomata or epigastric pain. The patient had a Matos bulb placed followed by Pitocin augmentation of labor. Pitocin was increased to 10 units. heart tones category 1 to category 2 throughout labor. The patient did not want an epidural for pain control. She used nitrous oxide and then requested IV fentanyl which was given when the patient was 8 cm dilated but she progressed rapidly to complete and pushing. The patient delivered spontaneously, over an intact perineum. RT was present because of the fentanyl. The patient had significant bleeding so the cord was clamped at 2 minutes. The placenta delivered spontaneously, intact, with 3 vessels. There were no cervical, vaginal, or perineal tears. The patient had 600 cc of blood loss initially. After delivery of the IV Pitocin was begun. Because the patient continued to have bleeding she received 800 mcg of Cytotec per rectum and IV TXA. Her bleeding improved significantly. Total rupture membranes 8 hours and 30 minutes, 1st stage of labor 9 hours and 37 minutes, 2nd stage of labor 21 minutes, 3rd stage of labor 5 minutes. Baby 1: Infant gender: Male Presentation: vertex Position: Right Occiput Anterior Placenta delivery description: Spontaneous Cord Vessel Description: 3 Vessels score (1 min): 9 score (5 min): 9 weight: 7 lb 15 oz Plan for aftercare: Routine care (Monitor for worsening preeclampsia and bleeding)
[2024-03-16] MEDS: DERMOPLAST SPRAY 20% 60 ML 1 SPRAY TOP (16:10)
[2024-03-16] MEDS: IBUPROFEN 600 MG TABLET PO ×2 (16:10→23:01)
[2024-03-17 05:34] LABS: Add Manual Diff / Slide Review NO; Basophils Absolute Auto 0 /uL (0-100); Basophils Percent Auto 0.3 % (0-2); Eosinophils Absolute Auto 100 /uL (0-450); Eosinophils Percent Auto 0.4 % (2-4); Hemoglobin 8.9 g/dL (12.0-16.0); Lymphocytes Absolute Auto 3000 /uL (1100-4500); Lymphocytes Percent Auto 20.7 % (25-40); Mean Corpuscular HGB Conc 34.4 % (30-36); Mean Corpuscular Volume 84.2 fL (80-100); Monocytes Absolute Auto 500 /uL (0-900); Monocytes Percent Auto 3.7 % (3-14); Neutrophils Absolute Auto 11000 /uL (1500-7000); Neutrophils Percent Auto 74.9 % (50-75); Platelet Count 218 X10^3/uL (150-400); Red Blood Cell Count 3.09 X10^6/uL (4.0-5.2); Red Cell Distribution Width 14.6 % (11.6-14.8); White Blood Cell Count 14.7 X10^3/uL (4.5-11.0)
[2024-03-17] MEDS: IBUPROFEN 600 MG TABLET PO ×2 (05:35→12:23)
[2024-03-17] MEDS: ACETAMINOPHEN 325 MG TABLET 650 MG PO ×2 (05:36→12:23)
[2024-03-17] MEDS: PRENATAL VIT,CALC/IRON/FOLIC 1 TABLET 1 TAB PO (08:31)
[2024-03-17] MEDS: FERROUS SULFATE 325 MG TABLET PO (08:31)
[2024-03-17] MEDS: LANOLIN OINT 7 GM 1 APPLIC TOP (08:31)
--- NOTE | 2024-03-17 11:54 | P.PNOB_ITS ---
Subjective - OB Subjective Patient comments: no complaints, tolerating diet and flatus present baby status: doing well and nursing well [place] feeding status: exclusively breast feeding Date Patient Seen: 03/17/24 Time Patient Seen: 11:54 Interval history: day 1 patient doing well. No headaches, scotomata, epigastric pain. Breast-feeding without difficulty. Urinating and ambulating well. No concerns with bleeding. Exam Vital Signs (past 8 hours): Blood pressure 113/64, pulse 75, temperature 97.4? Narrative Exam Narrative: Abdomen is soft, nontender. Uterus is firm, at U, nontender. Mild lochia. Perineum intact. Extremities without edema and nontender. Objective Labs 03/17/24 05:22 03/15/24 12:31 Labs: Laboratory Results - last 24 hr 03/17/24 05:22 WBC 14.7 H RBC 3.09 L Hgb 8.9 L Hct 26.0 L MCV 84.2 MCH 29.0 MCHC 34.4 RDW 14.6 Plt Count 218 Neut % (Auto) 74.9 Lymph % (Auto) 20.7 L [place] % (Auto) 3.7 Eos % (Auto) 0.4 L Baso % (Auto) 0.3 Neut # (Auto) 18129 H Lymph # (Auto) 3000 [place] # (Auto) 500 Eos # (Auto) 100 Baso # (Auto) 0 Assessment & Plan Assessment and Plan (1) Vaginal delivery: Status: Acute (2) hemorrhage, delivered, current hospitalization: Status: Acute (3) Acute blood loss anemia: Status: Acute Plan day: 1 plan OB: routine care Time Spent With Patient Time: Total time spent is greater than 50% in coordination of care (as documented) at patient's floor/unit and/or counseling patient: Time with patient: less than 15 minutes
[2024-03-17 13:42] VITALS: BP 124/78; PULSE 91; RESP 18; TEMP 36.4
[2024-03-17] MEDS: MEASLES,MUMPS,RUBELLA VACC/PF 0.5 ML VIAL SUBCUT (15:31)
--- NOTE | 2024-03-17 15:37 | P.DS_ITS ---
Discharge Providers Provider Date of admission: 03/15/24 11:52 Discharge Date: 03/17/24 Primary care physician: Zenia Lopez PA-C Consults: 03/17/24 13:14 Consult to Chart Collector Routine Comment: Discharge provider: Carmencita uPente MD Summary Hospital Course Date Patient Seen: 03/17/24 Time Patient Seen: 15:37 Diagnoses: 39 weeks with mild preeclampsia, spontaneous vaginal delivery, hemorrhage Hospital Course: Patient was found to have increasing blood pressures with out severe features who was admitted for induction at 39 and half weeks. Patient received a Matos bulb catheter for induction followed by Pitocin. Patient had a spontaneous vaginal delivery with no tears but hemorrhage that responded to TXA, Pitocin, Cytotec. The patient is blood pressures returned to normal. Patient has no headaches, scotomata, epigastric pain. Patient is . She has no significant pain. Bleeding is mild. She is urinating and ambulating well. Peripartum Data Delivery Method: Natural Vaginal Laceration Description: None Procedures: Matos bulb then Pitocin induction. Spontaneous vaginal delivery. complications: uterine atony (Responded to Pitocin, Cytotec, TXA) [place] 1: Gender: Male Disposition of : home Discharge Diagnosis (1) Vaginal delivery: Status: Acute (2) hemorrhage, delivered, current hospitalization: Status: Acute (3) Acute blood loss anemia: Status: Acute Status at Discharge Cognitive/behavioral status at discharge: oriented Functional status at discharge: independent ambulation Overall status at discharge: patient is progressing back to baseline Time Spent with Patient Time attestation: Total time spent providing and/or coordinating discharge services: Time spent: Less than 30 minutes Objective Labs 03/17/24 05:22 03/15/24 12:31 Labs: Laboratory Results - last 24 hr 03/17/24 05:22 WBC 14.7 H RBC 3.09 L Hgb 8.9 L Hct 26.0 L MCV 84.2 MCH 29.0 MCHC 34.4 RDW 14.6 Plt Count 218 Neut % (Auto) 74.9 Lymph % (Auto) 20.7 L [place] % (Auto) 3.7 Eos % (Auto) 0.4 L Baso % (Auto) 0.3 Neut # (Auto) 81627 H Lymph # (Auto) 3000 [place] # (Auto) 500 Eos # (Auto) 100 Baso # (Auto) 0 Exam Vital Signs (past 8 hours): - 03/17/24 13:42 Temperature 97.5 F L Pulse Rate 91 H Respiratory Rate 18 Blood Pressure 124/78 Narrative Exam Narrative: Abdomen is soft, nontender. Uterus is firm, at U, nontender. Mild lochia. Extremities without edema and nontender. Normal DTRs. Discharge Plan Discharge Plan Patient Disposition: Home Provider Discharge Comment: Patient should purchase [id number] slow Fe for anemia and Motrin for cramps Discharge orders & Medications Prescriptions: Continued multivitamin Tablet 1 tab PO DAILY cetirizine 10 mg Capsule 10 mg PO DAILY Probiotic 10 billion cell Capsule 10,000 mmu cells PO DAILY Discontinued aspirin 81 mg tablet,chewable 81 mg PO DAILY Follow up/Referrals: Cecille Kaufman MD [Physician] - (Patient to have a nurse blood pressure check in 1 week and then follow-up with Dr. Kaufman in 6 weeks,stop by 's office for a Blood Pressure check by the nurse.) Zenia Lopez PA-C [Primary Care Provider] - ( Appt w/ Dr. Kaufman on May 04 @ 1:45pm) Diet/Activity/Treatments Diet: Regular Activity: Nothing in vagina for 6 weeks Skin/Wound/Dressing Care Report to your healthcare provider any signs of infection, such as:: chills, fever and increased pain Visit Report/Discharge Packet Instructions: DI for Labor and Delivery, Vaginal Stand Alone Forms: Patient Portal/API, Stroke Signs & Symptoms Discharge Data Primary Care Provider: Zenia Lopez
== END 2024-03-17 16:40 | disposition home or self-care (01) | DRG 806 ==
PROVIDERS: Student in an Organized Health Care Education/Training Program; Admitting Provider Specialist; Family Provider Physician Assistant; PCP Physician Assistant; Referring Provider Specialist; Visit Provider Specialist
DX: O14.04 Mild to moderate pre-eclampsia, complicating childbirth (principal); D62 Acute posthemorrhagic anemia; Z37.0 Single live birth; O72.1 Other immediate postpartum hemorrhage; O90.81 Anemia of the puerperium; Z3A.39 39 weeks gestation of pregnancy
CPT/HCPCS: 36415; 59025; 59050; 59400; 82570; 84156; 84450; 84460; 84550; 85025; 86850; 86900; 86901; G0379; J2590; J3010; S0191